=== PATIENT | female | born 1975 ===

== ENCOUNTER 2022-07-12 11:11 | Outpatient (CLI) | payer BC ==
--- NOTE | 2022-07-12 14:05 | Ultrasound Report ---
PROCEDURE: Pelvic w/Transvaginal INDICATIONS: PARTIALLY RETAINED COPPER IUD FRAGMENT TECHNIQUE: Real-time scanning was performed of the pelvic organs, with image documentation. Additional endovagi nal scanning was necessary due to incomplete visualization of the adnexal and endometrial structures by transabdominal scanning. COMPARISON: None. FINDINGS: There is an approximately 7 mm long echogenic focus which appears to be embedded within the left uter ine myometrium approximately 1.5 cm from the internal os. This would be consistent with an IUD fragme nt. Bilateral ovarian cysts. Ovaries otherwise normal. IMPRESSION: Approximately 7 mm long echogenic focus consistent with IUD fragment embedded in the lef t uterine myometrium. Reviewed by: El Arechiga MD on 07/12/2022 2:04 PM PST Approved by: El Arechiga MD on 07/12/2022 2:04 PM PST Station ID: [id number]
== END 2022-07-12 11:12 | disposition home or self-care (01) ==
LOC: DI 11:11
PROVIDERS: ATTEND Nurse Practitioner
DX: Z18.10 Retained metal fragments, unspecified (principal)

== ENCOUNTER 2022-08-01 06:30 | Day surgery (SDC) | payer BC ==
[2022-08-01] MEDS ORDERED: LACTATED RINGERS 1,000 ML IV ONE ×2 (06:31→08:22)
--- NOTE | 2022-08-01 06:44 | ANESTHESIA ---
Pre-Anesthesia VS, & Labs - Diagnosis retained IUD - Procedure hysteroscopy, removal of same - NPO >8 hours - Is Patient ?: No - Lab Results Lab results reviewed: Yes Home Medications and Allergies Home Medications: Ambulatory Orders No Known Home Medications 07/28/22 No Known Home Medications 07/28/22 Allergies/Adverse Reactions: Allergies Allergy/AdvReac Type Severity Reaction Status Date / Time No Known Drug Allergies Allergy Verified 08/01/22 06:56 Anes History & Medical History - Anesthetic History Anesthesia Complications: reports: No previous complications Family history of Anesthesia Complications: Denies Family history of Malignant Hyperthermia: Denies - Medical History Cardiovascular: reports: None Pulmonary: reports: None Gastrointestinal: reports: Other Musculoskeletal: reports: None Endocrine/Autoimmune: reports: None Skin: reports: Other - Surgical History Orthopedic: reports: Other Dermatologic: reports: Skin cancer surgery Exam General: Alert, Oriented x3, Cooperative Dental: WNL (invisilign clips) Mouth Openin Fingerbreadth Neck Mobility: Normal Mallampati classification: II Thyromental Distance: 4-6 cm Respiratory: Lungs clear, Normal breath sounds, No respiratory distress Cardiovascular: Regular rate Neurological: Normal speech Mental/Cognitive Status: Alert/Oriented X3, Normal for patient Cognitive Status: Within normal limits Plan Anesthesia Type: Total IV Consent for Procedure(s) Verified and Reviewed: Yes Code Status: Attempt Resuscitation ASA classification: 2-Mild systemic disease Is this case an emergency?: No
[2022-08-01 06:46] LABS: HCG UR QUAL NEGATIVE
[2022-08-01] MEDS ORDERED: MIDAZOLAM 2 MG/2 ML VIAL ONE (06:56)
[2022-08-01] MEDS ORDERED: fentaNYL 100 MCG/2 ML VIAL ONE (06:57)
[2022-08-01] MEDS ORDERED: PROPOFOL 200 MG/20 ML VIAL IVP ONE ×2 (07:10→07:44)
[2022-08-01] MEDS ORDERED: LIDOCAINE-PF 2% 10 ML AMP SUBQ ONE (07:10)
[2022-08-01] MEDS ORDERED: SILVER NITRATE APPLICATOR TOP ONE (07:18)
[2022-08-01 08:52] VITALS: BP 108/66
--- NOTE | 2022-08-01 12:47 | ANESTHESIA POST OP EVALUATION ---
Anesthesia Post Eval - Post Anesthesia Eval Vitals: Last Vital Signs Temp 36.5 C 08/01/22 08:51 Pulse 56 L 08/01/22 08:51 Resp 16 08/01/22 08:51 BP 108/66 08/01/22 08:51 Pulse Ox 100 08/01/22 08:51 O2 Flow Rate CV Function Including HR & BP: Stable Pain Control: Satisfactory Nausea & Vomiting: Negative Mental Status: Baseline Respiratory Status: Airway Patent Hydration Status: Satisfactory Anesthesia Complications: None
--- NOTE | 2022-08-01 16:52 | OPERATIVE REPORT ---
Operative Report - General Procedure Date: 08/01/22 Planned Procedure: Diagnostic hysteroscopy, removal of IUD fragment Pre-Op Diagnosis: Retained arm of Paragard IUD Procedure Performed: Diagnostic hysteroscopy Post Op Diagnosis: Normal appearing endometrial cavity, no IUD fragment noted - Procedure Note Primary Surgeon: Symone Alba DO Anesthesia Provider: Vickey Read CRNA Pathology: None Estimated Blood Loss (mL): 10 Indications: Retained Paragard arm fragment, visualized on ultrasound Findings: Normal appearing endometrial cavity, no IUD fragment noted Complications: None - Other Other Information/Narrative: Patient taken to OR where anesthesia obtained without difficulty. Placed in dorsal lithotomy position in Gregor stirrups. Prepped and draped in sterile fashion. Álvarez catheter placed and removed to empty bladder. [place] speculum placed in vagina. Anterior lip of cervix grasped with single tooth tenaculum. Cervix dilated to accomodate hysteroscope. Hysteroscope introduced into cavity and aforementioned findings noted. No IUD fragment noted, endometrial cavity checked throughout again. Hysteroscope removed. Speculum and tenaculum removed.
== END 2022-08-01 06:31 | disposition home or self-care (01) ==
LOC: SDS 06:30
PROVIDERS: ATTEND Obstetrics & Gynecology
DX: Z30.432 Encounter for removal of intrauterine contraceptive device (principal); Z87.891 Personal history of nicotine dependence
CPT/HCPCS: 58555; 81025; J7120